=== PATIENT | male | born 1955 | race Caucasian/White ===

== ENCOUNTER 2024-05-14 06:49 | Day surgery (SDC) | payer OTHER, SELFPAY ==
[2024-05-04 12:58] VITALS: BMI 31.6
[2024-05-14] VITALS (10 sets, daily range): BP systolic 126–157; BP diastolic 70–101; BMI 31.6
[2024-05-14] MEDS: TYLENOL 1000 MG PO (12:06)
[2024-05-14 12:29] LABS: Glucose - Point of Care 104 mg/dl (70-99)
[2024-05-14] MEDS: NORMOSOL-R/PLASMALYTE-A 1000 IV (12:34)
--- NOTE | 2024-05-14 14:20 | OR.RPT ---
Operative Report
Operative Report
Primary Surgeon: Eloina
Assisting: Edyta NUNN
Pre-op Diagnosis: Umbilical hernia, incarcerated
Post-op Diagnosis: Same
Procedure Performed: Robot assisted laparoscopic repair of incarcerated umbilical hernia (rTAPP)
Anesthesia Type: GETA + TAP block
Specimen / Cultures: None
Estimated Blood Loss: 10cc
Complications: None immediate
Operative Findings: 1cm defect, 13cm bard soft mesh
Date of surgery: 05/14/24
Indications:� This 68M developed a symptomatic incarcerated umbilical hernia. Robot assisted laparoscopic repair was planned.
Description of procedure:� The patient was taken to the operating room and positioned into supine position. The patient�s abdomen was prepped and draped in standard sterile fashion. A time-out was completed verifying correct patient, procedure,
site, positioning, and implants and special equipment prior to beginning this procedure.� The hernia was partially manually reduced after induction. A stab incision was made in the left upper quadrant, a Veress needle was inserted and proper
position was confirmed by aspiration and saline drop test. Following this, pneumoperitoneum was created with insufflation of carbon dioxide to 12 mmHg. Then a 8mm robotic trocar was inserted at the left anterior axillary line at the level of the
umbilicus. The laparoscope was inserted and no injuries were identified in the area. Under direct visualization, the initial trocar was exposed and two 8mm trocars were placed a hand's breadth above and below the initial trocar under direct
visualization.
Attention was turned to the umbilical defect. The peritoneum was incised several cm superior to the defect and a peritoneal flap was developed in transverse and caudad directions using blunt and sharp dissection and judicious electrocautery. The
defect was identified and measured as above. Incarcerated fatty contents were reduced. The defect was closed with 0 PDS straatafix suture. A 13cm x 13cm bard soft mesh was passed into the abdomen. It was placed against the underside of the
abdominal wall and secured in place with 2-0 vicryl sutures at all four corners. The flap was closed over the mesh and secured with 2-0 monocryl stratafix suture. A 14g angiocath was used to decompress the preperitoneal space. The flap sealed and
suctioned nicely up to the abdominal wall. The mesh did not fold nor curl. A transversus abdominis plane block was then performed under laparoscopic vision with marcaine/decadron.
After ensuring adequate hemostasis, the trocars were removed and the pneumoperitoneum allowed to escape. The trocar incisions were closed at the skin level using 4-0 monocryl and topical skin adhesive. All counts were correct and the patient
tolerated the procedure well and was taken to the postanesthesia care unit in stable condition.
[2024-05-14 14:38] LABS: Glucose - Point of Care 154 mg/dl (70-99)
== END 2024-05-14 16:25 | disposition home or self-care (01) ==
LOC: SDS 06:49
PROVIDERS: ATTENDING PHYSICIAN Surgery; FAMILY PHYSICIAN Family Medicine
DX: K42.0 Umbilical hernia with obstruction, without gangrene (principal)
CPT/HCPCS: 49592; 36415; 82962; 93005; C1781

== ENCOUNTER 2025-04-15 06:16 | Day surgery (SDC) | payer OTHER, SELFPAY ==
[2025-04-15 07:17] LABS: Glucose - Point of Care 172 mg/dl (70-99)
== END 2025-04-15 08:38 | disposition home or self-care (01) ==
LOC: GI 06:16
PROVIDERS: ATTENDING PHYSICIAN Specialist
DX: Z12.11 Encounter for screening for malignant neoplasm of colon (principal); K57.30 Diverticulosis of large intestine without perforation or abscess without bleeding; D12.2 Benign neoplasm of ascending colon; Z86.0101 Personal history of adenomatous and serrated colon polyps
CPT/HCPCS: 45385; 82962; 88305